=== PATIENT | female | born 1980 | race Caucasian/White ===

== ENCOUNTER 2019-04-01 19:09 | Emergency (ER) | payer MEDICAID ==
[~2019-04-01] VITALS: Ht 147.3 cm; Wt 57.6 kg
[2019-04-01 19:34] VITALS: BP 106/71
--- NOTE | 2019-04-01 19:40 | NUR ---
AMBULATES BACK TO [facility] WITH SLOW, STEADY GAIT. AWAITING AVAILABLE BED.
--- NOTE | 2019-04-01 20:48 | NUR ---
38 Y/O FEMALE C/O BACK PAIN THAT RADIATES DOWN LEFT LEG AND LEFT ARM X 1 WEEK. PATIENT STATES THAT IT IS WORSE TODAY AND IS A 10/10 SHARP, PULSATING PAIN. POSSIBLE HX OF SCIATICA. DENIES RECENT TRAUMA/INJURY. SLIGHT TENDERNESS UPON PALPATING LEFT BUTTOCK/HIP; +ROM LEFT LEG. DENIES N/V/D. ERMD MADE AWARE OF STATUS. SIDE RAILSX1. WILL CONTINUE TO MONITOR PMH-- DENIES RX-- IBUPROFEN WITH LITTLE RELIEF NKDA
--- NOTE | 2019-04-01 20:48 | NUR ---
PT AMBULATED TO BED 04
[2019-04-01] MEDS ORDERED: KETOROLAC 30 MG/ML VIAL IM ONE (21:30)
[2019-04-01 22:25] VITALS: BP 110/79
--- NOTE | 2019-04-01 22:25 | NUR ---
Patient discharged with v/s stable. Written and verbal after care instructions given and explained. Patient alert, oriented and verbalized understanding of instructions. Ambulatory with steady gait. All questions addressed prior to discharge. ID band removed. Patient advised to follow up with PMD. Rx of NAPROSYN; VALIUM; LIDODERM given. Patient educated on indication of medication including possible reaction and side effects. Opportunity to ask questions provided and answered.
== END 2019-04-01 22:29 | disposition home or self-care (01) ==
LOC: MED 19:09
DX: M54.42 Lumbago with sciatica, left side (principal); M62.830 Muscle spasm of back; Z98.890 Other specified postprocedural states
CPT/HCPCS: 96372; 99283; J1885

== ENCOUNTER 2021-07-18 15:37 | Emergency (ER) | payer MEDICAID ==
[~2021-07-18] VITALS: Ht 147.3 cm; Wt 58.5 kg
[2021-07-18 15:41] VITALS: BP 128/71
--- NOTE | 2021-07-18 15:49 | NUR ---
40 Y/O FEMALE BIB SELF C/O BILATERAL EAR PAIN, NOTED PRESSURE 6/10 RADIATING TO THE RIGHT CHEEK AND EYE, AND HEAD. TOOK TYLENOL FOR PAIN WITH MINIMAL EFFECT. DENIES ANY RESPIRATORY SYMPTOMS. NKA PMH: DENIED
--- NOTE | 2021-07-18 16:11 | NUR ---
CELIO PETERSON AT BEDSIDE FOR FURTHER EVAL
--- NOTE | 2021-07-18 17:00 | NUR ---
RIGHT ear irrigated with 60ml of normal saline. HARDENED CERUMEN noted removed from ear by irrigation. Patient TOLERATED WELL to procedure.
[2021-07-18] MEDS ORDERED: CARB15DR61 OT (17:35)
[2021-07-18 17:43] VITALS: BP 111/74
--- NOTE | 2021-07-18 17:44 | NUR ---
Patient discharged with v/s stable. Written and verbal after care instructions ABOUT [facility] BUILD UP given and explained. Patient alert, oriented and verbalized understanding of instructions. Ambulatory with steady gait. All questions addressed prior to discharge. ID band removed. Patient advised to follow up with PMD. Rx of DEBROX 6.5% OTIC given. Patient educated on indication of medication including possible reaction and side effects. Opportunity to ask questions provided and answered.
== END 2021-07-18 17:44 | disposition home or self-care (01) ==
LOC: MED 15:37
DX: H61.21 Impacted cerumen, right ear (principal); R03.0 Elevated blood-pressure reading, without diagnosis of hypertension; Z79.899 Other long term (current) drug therapy
CPT/HCPCS: 99282